=== PATIENT | male | born 1965 | race Caucasian/White ===

== ENCOUNTER 2018-09-20 08:00 | Inpatient (IN) | payer OTHER ==
[~2018-09-20 08:00] MED LIST: ceFAZolin 2 GM in Premix Bag 1 BAG IV SCH
[2018-09-20] MEDS ORDERED: Propofol 200 MG/20 ML SDV ONE ×2 (08:52→11:58)
[2018-09-20] MEDS ORDERED: fentaNYL 100 MCG/2 ML SDV ONE (08:53)
[2018-09-20] MEDS ORDERED: Midazolam 1 MG/ML 2 ML SDV ONE (08:53)
[2018-09-20] MEDS ORDERED: ceFAZolin 1 GM Vial ONE ×3 (08:58→11:53)
[2018-09-20] MEDS: Lactated Ringers 1,000 ML IV SCH ×2 (09:31→17:21)
--- NOTE | 2018-09-20 09:49 | PCM.PREANE ---
Preanesthetic Assessment - Anesthesia/Transfusion/Family Hx Anesthesia History: No Prior Anesthesia Family History of Anesthesia Reaction: No Transfusion History: No Prior Transfusion(s) - Review of Systems General: No Symptoms Pulmonary: No Symptoms Cardiovascular: No Symptoms Gastrointestinal: No Symptoms Neurological: No Symptoms Other: Reports: None - Physical Assessment NPO Status Date: 09/19/18 O2 Sat by Pulse Oximetry: 95 Respiratory Rate: 16 Vital Signs: Last Vital Signs Temp 97.2 F 09/20/18 08:45 Pulse 62 09/20/18 08:45 Resp 16 09/20/18 08:45 BP 137/92 H 09/20/18 08:45 Pulse Ox 95 09/20/18 08:45 Height: 5 ft 8 in Weight: 127.006 kg ASA Class: 2 Mental Status: Alert & Oriented x3 Dentition: Reports: Normal Dentition, Dentures Lungs: Clear to Auscultation, Normal Respiratory Effort Cardiovascular: Regular Rate, Regular Rhythm - Allergies Allergies/Adverse Reactions: Allergies Allergy/AdvReac Type Severity Reaction Status Date / Time No Known Allergies Allergy Verified 09/16/18 12:39 - Blood Blood Available: No - Anesthesia Plan Pre-Op Medication Ordered: None - Acknowledgements Anesthesia Type Planned: Spinal Pt an Appropriate Candidate for the Planned Anesthesia: Yes Alternatives and Risks of Anesthesia Discussed w Pt/Guardian: Yes Pt/Guardian Understands and Agrees with Anesthesia Plan: Yes Additional Comments: PMH: htn- on hctz and lisinopril, Morbid obesity with BMI=42 Plan: spinal with sedation PreAnesthesia Questionnaire HEENT History: Reports: None Cardiovascular History: Reports: Hypertension Respiratory History: Reports: None Gastrointestinal History: Reports: None Genitourinary History: Reports: None Musculoskeletal History: Reports: Arthritis, Fracture Other Musculoskeletal History: hx fx leg Neurological History: Reports: None Psychiatric History: Reports: None Endocrine/Metabolic History: Reports: Obesity/BMI 30+ Hematologic History: Reports: None Immunologic History: Reports: None Oncologic (Cancer) History: Reports: None Dermatologic History: Reports: Other (See Below) Other Dermatologic History: fungus to back, buttocks and leg - Past Surgical History Head Surgeries/Procedures: Reports: None HEENT Surgical History: Reports: None Cardiovascular Surgical History: Reports: None Respiratory Surgical History: Reports: None GI Surgical History: Reports: None Male Surgical History: Reports: None Endocrine Surgical History: Reports: None Neurological Surgical History: Reports: None Musculoskeletal Surgical History: Reports: None Oncologic Surgical History: Reports: None Dermatological Surgical History: Reports: None - SUBSTANCE USE Smoking Status *Q: Never Smoker Recreational Drug Use History: No - HOME MEDS Home Medications: Home Meds Cholecalciferol (Vitamin D3) [Vitamin D3] 2,000 units PO DAILY 09/16/18 [History ] Diclofenac Sodium [Voltaren] 75 mg PO BID 09/16/18 [History] Lisinopril 20 mg PO DAILY 09/16/18 [History] Terbinafine HCl 250 mg PO DAILY 09/16/18 [History] hydroCHLOROthiazide [Hydrochlorothiazide] 25 mg PO DAILY 09/16/18 [History] - CURRENT (IN HOUSE) MEDS Current Meds: Current Medications Lactated Ringer's (Ringers, Lactated) 1,000 mls @ 100 mls/hr IV ASDIRECTED [facility]GELA Last Admin: 09/20/18 09:31 Dose: 100 mls/hr Cefazolin Sodium/Dextrose 2 gm (/ Premix) 50 mls @ 100 mls/hr IV ONETIME [facility] Discontinued Medications Cefazolin Sodium (Ancef) Confirm Administered Dose 2 gm .ROUTE .STK-MED ONE Stop: 09/20/18 08:59 Cefazolin Sodium (Ancef) Confirm Administered Dose 1 gm .ROUTE .STK-MED ONE Stop: 09/20/18 09:00 Fentanyl (Sublimaze) Confirm Administered Dose 100 mcg .ROUTE .STK-MED ONE Stop: 09/20/18 08:54 Midazolam HCl (Versed 1 Mg/Ml) Confirm Administered Dose 2 mg .ROUTE .STK-MED ONE Stop: 09/20/18 08:54 Propofol (Diprivan 20 Ml) Confirm Administered Dose 600 mg .ROUTE .STK-MED ONE Stop: 09/20/18 08:53 Tranexamic Acid (Cyklokapron) 2,000 mg IV ONETIME ONE Stop: 09/20/18 07:01 Tranexamic Acid (Cyklokapron) Confirm Administered Dose 2,000 mg .ROUTE .STK- MED ONE Stop: 09/20/18 07:34
[2018-09-20] MEDS ORDERED: HYDROmorphone 2 MG/ML Syringe IVPUSH ONE (11:45)
[2018-09-20] MEDS ORDERED: Meperidine PF 25 MG/ML Syringe IVPUSH ONE (11:45)
[2018-09-20] MEDS ORDERED: fentaNYL 100 MCG/2 ML SDV IVPUSH PRN (11:45)
[2018-09-20] MEDS ORDERED: ePHEDrine 50 MG/ML SDV ONE (11:53)
[2018-09-20] MEDS ORDERED: Phenylephrine/Normal Saline 100 MCG/ML 10 ML Syringe ONE (11:53)
[2018-09-20] MEDS ORDERED: Glycopyrrolate 0.2 MG/ML SDV ONE (11:53)
[2018-09-20] MEDS ORDERED: Sodium Chloride 0.9% 40 ML ONE (12:24)
[2018-09-20] MEDS ORDERED: Bisacodyl 10 MG Supp RECTAL PRN (12:30)
[2018-09-20] MEDS ORDERED: Aluminum Hydroxide/Magnesium Hydroxide/Simethicone Susp 30 ML Cup PO PRN (12:30)
[2018-09-20] MEDS ORDERED: diphenhydrAMINE 25 MG Cap PO PRN (12:30)
[2018-09-20] MEDS ORDERED: Ketorolac 30 MG/ML SDV IVPUSH SCH (12:30)
[2018-09-20] MEDS ORDERED: Ondansetron 4 MG/2 ML SDV IV PRN (12:30)
--- NOTE | 2018-09-20 12:31 | PCM.OPNOTE ---
- General Post-Op/Procedure Note Date of Surgery/Procedure: 09/20/18 Operative Procedure(s): right anterior total hip arthroplasty Findings: severe OA Pre Op Diagnosis: right hip dysplasia with osteoarthritis Post-Op Diagnosis: same Anesthesia Technique: Moderate Sedation, Spinal Primary Surgeon: Philip Sood Mai Professor Of Voice: Piper Monaco Pathology: femoral head EBL in mLs: 500 Complications: none Condition: Good
--- NOTE | 2018-09-20 13:32 | PCM.POSTAN ---
POST ANESTHESIA ASSESSMENT - MENTAL STATUS Mental Status: Alert, Oriented - RESPIRATORY Respiratory Status: Respiratory Rate WNL, Airway Patent, O2 Saturation Stable - CARDIOVASCULAR CV Status: Pulse Rate WNL, Blood Pressure Stable - GASTROINTESTINAL GI Status: No Symptoms - POST OP HYDRATION Hydration Status: Adequate & Stable
[2018-09-20] MEDS: Acetaminophen/HYDROcodone 325-7.5 MG Tab PO PRN ×2 (14:20→18:27)
--- NOTE | 2018-09-20 15:47 | CR ---
EXAMINATION: Left hip HISTORY: Arthroplasty COMPARISON: 05/13/2018 TECHNIQUE: 2 images provided FINDINGS/IMPRESSION: Operative control films demonstrate left total hip trial hardware noted.
--- NOTE | 2018-09-20 15:57 | OR ---
SURGEON: Philip Henriquez MD DATE OF PROCEDURE: 09/20/2018 HULL SORTER: Piper Monaco PA-C. PREOPERATIVE DIAGNOSIS: Left hip dysplasia with osteoarthritis. POSTOPERATIVE DIAGNOSIS: Left hip dysplasia with osteoarthritis. OPERATION PERFORMED: Left anterior total hip arthroplasty. ANESTHESIA: Spinal with sedation. ESTIMATED BLOOD LOSS: 500 mL. SPECIMENS: Femoral head. IMPLANT: Terence Continuum trabecular metal shell with cluster holes, 56 outer diameter, one 6.5 x 30 mm bone screw, Vivacit-E neutral liner 36 mm inner diameter, Avenir Evans hip stem standard size 6; Biolox delta ceramic femoral head 36 mm diameter, zero neck length. INDICATIONS: The patient is a 53-year-old male with severe arthritis with dysplasia. He has failed conservative management, modification therapy, injections, chronic pain on a daily basis hindering activities. He wished to undergo replacement. He understands the risks, benefits, alternatives, complications of procedure including but not limited to infection, neurovascular injury, continued pain, DVT, PE, stroke, LA, , leg-length discrepancy, fracture, dislocation, and he wished to proceed. DESCRIPTION OF PROCEDURE: The patient was seen in the preoperative area. Operative extremity was marked with patient. He was transferred to the operating room. Spinal anesthesia was given. He was placed supine on the operating room table. Sedation was given. The legs were placed in the leg bars with a narrow perineal post. The left hip was prepped and draped in the usual sterile fashion using alcohol followed by ChloraPrep with Ioban covering. He received preop antibiotics Ancef 2 g and TXA. A formal time-out was taken, identifying the correct patient, procedure and extremity. An 8 cm incision starting lateral to the ASIS going obliquely to the femur was made. Dissection was carried down through the subcutaneous tissues. Hemostasis was obtained. The fascia overlying the TFL lateral to the lateral femoral cutaneous nerve was opened and the interval between TFL and sartorius deep between the abductors rectus was opened. The vastus lateralis fascia was opened and the anterior vessels were coagulated. A deep Sanjeev tractor was placed. The capsule was held and tagged with two sutures releasing the indirect head of the rectus and deep retractors were placed. The neck was cut from the saddle region 1 to 1-1/2 cm above the lesser trochanter. The head was removed. There was severe arthritis and intense amount of synovitis and synovectomy was performed during the case. The inferior capsule was released preserving the iliopsoas tendon. The labral remnants were removed. The pulvinar was removed. The head measured approximately 51 mm. It was sequentially reamed from 49 up to 55 mm was made going slightly superomedial to get good fit and fill. The bed was planed to make sure it was level and then after irrigating a continuum trabecular metal shell with cluster holes placed 10 degrees anteversion and 40 degrees of abduction and excellent press fit. Once straight superior bone screw was placed after drilling and neutral liner was impacted. The femoral lift was placed. The leg was externally rotated, abducted, and extended. The superior capsule and obturator internus and piriformis were released. The central canal finder was utilized and the hip was sequentially broached from a starter rasp up to a size 6 following the eastern [place]osh[place] version. It was trial reduced to standard neck length. Printed overlay technique showed equal leg length and offset compared to the opposite side. Therefore, the hip was dislocated. Trial components were removed. The final standard size 6 Avenir Chaparro stem was impacted following the [place] sh[place] version and the final head 36 mm diameter, zero neck length was impacted. It was relocated. There was no Shuck. There was stable range of motion. Two tag sutures were tied together. The fascia was closed with #1 Vicryl. The subcutaneous tissues with 2-0 Stratafix and skin was running 4-0 Monocryl. Dermabond tape and Aquacel dressing were placed. The patient was transferred to the recovery room in stable condition. Sponge and needle counts were correct at the end of the case. No complications. LUCIE / TONYA /[id number]
[2018-09-20] MEDS: ceFAZolin 2 GM in Premix Bag 1 BAG IV SCH (18:31)
[2018-09-20] MEDS: Docusate Sodium 100 MG Cap PO SCH ×2 (19:53→20:30)
[2018-09-20] MEDS: Ketorolac 30 MG/ML SDV IVPUSH SCH (23:00)
[2018-09-21] MEDS: Lactated Ringers 1,000 ML IV SCH (03:46)
[2018-09-21] MEDS: ceFAZolin 2 GM in Premix Bag 1 BAG IV SCH (03:47)
[2018-09-21] MEDS: Ketorolac 30 MG/ML SDV IVPUSH SCH (05:00)
[2018-09-21] MEDS ORDERED: Sodium Chloride 0.9% 10 ML Syringe FLUSH PRN (07:07)
[2018-09-21] MEDS ORDERED: Sodium Chloride 0.9% 2.5 ML Syringe FLUSH PRN (07:07)
--- NOTE | 2018-09-21 07:14 | PCM.SN ---
- Free Text/Narrative Note: S: doing well. Pain controlled. has ambulated. no CP/SOB. no other issues O: afebrile, vital signs stable dressing clean/dry/intact. no swelling in thigh or distally. sensation intact distally and active motor. 2+ DP A/P: POD #1 Left [place]ISE - full weight bearing, walker - ecotrin and SCDs for DVT prophylaxis - to home today, f/u in 2 weeks.
[2018-09-21] MEDS ORDERED: Aspirin 325 MG Tab PO SCH (09:00)
[2018-09-21] MEDS ORDERED: Lisinopril 10 MG Tab PO SCH (09:00)
[2018-09-21] MEDS ORDERED: Celecoxib 100 MG Cap PO SCH (09:00)
[2018-09-21] MEDS ORDERED: Hydrochlorothiazide 25 MG Tab PO SCH (09:00)
[2018-09-21] MEDS ORDERED: Terbinafine 250 MG Tab PO SCH (09:00)
[2018-09-21] MEDS: Docusate Sodium 100 MG Cap PO SCH (09:21)
--- NOTE | 2018-09-22 07:08 | PCM.DCSUM1 ---
Discharge Summary - Hospital Course Brief History: Patient was admitted for elective total hip arthroplasty. He underwent uneventful surgery and postoperatively was admitted to the floor where his pain was controlled and his diet was advanced. He participated in physical therapy with weightbearing as tolerated. Essentially discharged home on postoperative day #1 area did take aspirin for DVT prophylaxis he'll follow- up in 2 weeks. Diagnosis: Stroke: No - Discharge Data Discharge Date: 09/21/18 Discharge Disposition: Home, Self-Care 01 Condition: Good - Patient Summary/Data Operative Procedure(s) Performed: right anterior total hip arthroplasty Consults: Consultations 09/20/18 12:29 PT Evaluation and Treatment [CONS] Routine - Patient Instructions Diet: Usual Diet as Tolerated Activity: Apply Ice, Full Weight Bearing Driving, Other: may drive when not taking narcotics Showering/Bathing: May Shower Wound/Incision Care: Keep Operative Site/Wound Site Clean and Dry, Do NOT Change Dressing Notify Provider of: Fever, Swelling and Redness, Drainage - Discharge Plan *PRESCRIPTION DRUG MONITORING PROGRAM REVIEWED*: No *COPY OF PRESCRIPTION DRUG MONITORING REPORT IN PATIENT YOSELIN: No Home Medications: Home Meds Cholecalciferol (Vitamin D3) [Vitamin D3] 2,000 units PO DAILY 09/16/18 [History ] Diclofenac Sodium [Voltaren] 75 mg PO BID 09/16/18 [History] Lisinopril 20 mg PO DAILY 09/16/18 [History] Terbinafine HCl 250 mg PO DAILY 09/16/18 [History] hydroCHLOROthiazide [Hydrochlorothiazide] 25 mg PO DAILY 09/16/18 [History] Patient Handouts: Acetaminophen; Hydrocodone tablets or capsules, Total Hip Replacement, Care After, [id number], Docusate capsules, Aspirin capsules or tablets extended release Referrals: Piper Monaco PA [Physician Linen Folder] - 10/04/18 10:40 am - Discharge Summary/Plan Comment DC Time >30 min.: No - Patient Data Vitals - Most Recent: Last Vital Signs Temp 37.6 C 09/21/18 08:00 Pulse 82 09/21/18 08:00 Resp 18 09/21/18 08:00 BP 131/75 09/21/18 09:20 Pulse Ox 95 09/21/18 08:00 Weight - Most Recent: 127.006 kg Med Orders - Current: Current Medications Discontinued Medications Hydrocodone Bitart/Acetaminophen ([place] 325-7.5 Mg) 1 - 2 tab PO Q4H PRN PRN Reason: Pain Last Admin: 09/20/18 18:27 Dose: 2 tab Al Hydroxide/Mg Hydroxide (Mag-Al Plus) 30 ml PO Q4H PRN PRN Reason: indigestion Aspirin (Aspirin) 325 mg PO BID [facility] Last Admin: 09/21/18 09:21 Dose: 325 mg Bisacodyl (Dulcolax) 10 mg RECTAL DAILY PRN PRN Reason: Constipation Cefazolin Sodium (Ancef) Confirm Administered Dose 2 gm .ROUTE .STK-MED ONE Stop: 09/20/18 08:59 Cefazolin Sodium (Ancef) Confirm Administered Dose 1 gm .ROUTE .STK-MED ONE Stop: 09/20/18 09:00 Cefazolin Sodium (Ancef) Confirm Administered Dose 1 gm .ROUTE .STK-MED ONE Stop: 09/20/18 11:54 Celecoxib (Celebrex) 200 mg PO DAILY [facility] Last Admin: 09/21/18 09:21 Dose: 200 mg Diphenhydramine HCl (Benadryl) 25 - 50 mg PO Q6H PRN PRN Reason: Itching Docusate Sodium (Colace) 100 mg PO BID [facility] Last Admin: 09/21/18 09:21 Dose: 100 mg Ephedrine Sulfate (Ephedrine Sulfate) Confirm Administered Dose 50 mg .ROUTE .STK-MED ONE Stop: 09/20/18 11:54 Fentanyl (Sublimaze) Confirm Administered Dose 100 mcg .ROUTE .STK-MED ONE Stop: 09/20/18 08:54 Fentanyl (Sublimaze) 50 mcg IVPUSH Q5M PRN PRN Reason: Pain (severe 7-10) Stop: 09/21/18 11:48 Glycopyrrolate (Robinul) Confirm Administered Dose 0.2 mg .ROUTE .STK-MED ONE Stop: 09/20/18 11:54 Hydrochlorothiazide (Hydrochlorothiazide) 25 mg PO DAILY [facility] Last Admin: 09/21/18 09:21 Dose: 25 mg Hydromorphone HCl (Dilaudid) 2 mg IVPUSH ONETIME ONE Stop: 09/20/18 11:46 Last Admin: 09/20/18 17:03 Dose: Not Given Lactated Ringer's (Ringers, Lactated) 1,000 mls @ 100 mls/hr IV ASDIRECTED [facility] Last Admin: 09/21/18 03:46 Dose: 100 mls/hr Cefazolin Sodium/Dextrose 2 gm (/ Premix) 50 mls @ 100 mls/hr IV ONETIME [facility] Lidocaine HCl (Xylocaine-Mpf 1%) Confirm Administered Dose 5 mls @ as directed .ROUTE .STK-MED ONE Stop: 09/20/18 11:54 Sodium Chloride (Normal Saline) Confirm Administered Dose 40 mls @ as directed .ROUTE .STK-MED ONE Stop: 09/20/18 12:25 Cefazolin Sodium/Dextrose 2 gm (/ Premix) 50 mls @ 100 mls/hr IV Q8H [facility] Stop: 09/21/18 03:29 Last Admin: 09/21/18 03:47 Dose: 100 mls/hr Ketorolac Tromethamine (Toradol) 30 mg IVPUSH Q6H [facility] Stop: 09/21/18 05:00 Last Admin: 09/20/18 16:20 Dose: 30 mg Ketorolac Tromethamine (Toradol) 30 mg IVPUSH Q6H [facility] Stop: 09/21/18 05:00 Last Admin: 09/21/18 05:00 Dose: 30 mg Lisinopril (Prinivil) 20 mg PO DAILY [facility] Last Admin: 09/21/18 09:20 Dose: 20 mg Meperidine HCl (Demerol) 12.5 mg IVPUSH ONETIME ONE Stop: 09/20/18 11:46 Last Admin: 09/20/18 17:03 Dose: Not Given Midazolam HCl (Versed 1 Mg/Ml) Confirm Administered Dose 2 mg .ROUTE .STK-MED ONE Stop: 09/20/18 08:54 Morphine Sulfate (Morphine Sulfate) 1 - 3 mg IV Q3H PRN PRN Reason: Pain Last Admin: 09/20/18 19:50 Dose: 3 mg Ondansetron HCl (Zofran) 4 mg IV Q6HR PRN PRN Reason: NAUSEA/VOMITING Phenylephrine HCl (Phenylephrine In Ns 100 Mcg/Ml) Confirm Administered Dose 1 mg .ROUTE .STK-MED ONE Stop: 09/20/18 11:54 Propofol (Diprivan 20 Ml) Confirm Administered Dose 600 mg .ROUTE .STK-MED ONE Stop: 09/20/18 08:53 Propofol (Diprivan 20 Ml) Confirm Administered Dose 200 mg .ROUTE .STK-MED ONE Stop: 09/20/18 11:59 Sodium Chloride (Saline Flush) 10 ml FLUSH ASDIRECTED PRN PRN Reason: Keep Vein Open Sodium Chloride (Saline Flush) 2.5 ml FLUSH ASDIRECTED PRN PRN Reason: Keep Vein Open Terbinafine HCl (Lamisil) 250 mg PO DAILY [facility] Last Admin: 09/21/18 10:48 Dose: Not Given Tranexamic Acid (Cyklokapron) 2,000 mg IV ONETIME ONE Stop: 09/20/18 07:01 Last Admin: 09/20/18 17:03 Dose: Not Given Tranexamic Acid (Cyklokapron) Confirm Administered Dose 2,000 mg .ROUTE .STK- MED ONE Stop: 09/20/18 07:34
== END 2018-09-21 10:30 | disposition home or self-care (01) | DRG 470 ==
LOC: MW.MS 08:15
PROVIDERS: ADMIT Orthopaedic Surgery; ATTEND Orthopaedic Surgery
PROC: 0SRB04Z Replacement of Left Hip Joint with Ceramic on Polyethylene Synthetic Substitute, Open Approach (ICD-10-PCS; principal; 2018-09-20)
DX: M16.12 Unilateral primary osteoarthritis, left hip (principal); Z68.41 Body mass index [BMI] 40.0-44.9, adult; I10 Essential (primary) hypertension; E66.01 Morbid (severe) obesity due to excess calories; Q65.89 Other specified congenital deformities of hip; Z79.899 Other long term (current) drug therapy
CPT/HCPCS: 36415; 76000; 76000-26; 85014; 85018; 97116-GP; 97161-GP; 97530-GP; A9270-GY; C1713; C1776; J0690; J1885; J2001; J2250; J2270; J2370; J2704; J3010; J3490; J7120

== ENCOUNTER 2019-04-24 06:44 | Inpatient (IN) | payer OTHER ==
[~2019-04-24 06:44] MED LIST changes: +Lactated Ringers 1,000 ML IV SCH; -ceFAZolin 2 GM in Premix Bag 1 BAG IV SCH
[2019-04-24] MEDS ORDERED: ceFAZolin 2 GM in Premix Bag 1 BAG IV SCH (06:45)
[2019-04-24] MEDS ORDERED: Propofol 200 MG/20 ML SDV ONE (07:00)
[2019-04-24] MEDS ORDERED: Midazolam 1 MG/ML 2 ML SDV ONE (07:00)
[2019-04-24] MEDS ORDERED: fentaNYL 100 MCG/2 ML SDV ONE (07:00)
[2019-04-24] MEDS ORDERED: Ondansetron 4 MG/2 ML SDV ONE (07:09)
[2019-04-24] MEDS ORDERED: Bupivacaine 0.5% 10 ML SDV ONE (07:09)
[2019-04-24] MEDS ORDERED: Dexamethasone 4 MG/ML 5 ML MDV ONE (07:09)
--- NOTE | 2019-04-24 07:35 | PCM.PREANE ---
Preanesthetic Assessment - Anesthesia/Transfusion/Family Hx Anesthesia History: No Prior Anesthesia Family History of Anesthesia Reaction: No Transfusion History: No Prior Transfusion(s) - Review of Systems General: No Symptoms Pulmonary: No Symptoms Cardiovascular: No Symptoms Gastrointestinal: No Symptoms Neurological: No Symptoms Other: Reports: None - Physical Assessment NPO Status Date: 04/23/19 Height: 5 ft 8 in Weight: 128.82 kg ASA Class: 2 Mental Status: Alert & Oriented x3 Airway Class: Mallampati = 2 Dentition: Reports: Normal Dentition ROM/Head Extension: Full Lungs: Clear to Auscultation, Normal Respiratory Effort Cardiovascular: Regular Rate, Regular Rhythm - Allergies Allergies/Adverse Reactions: Allergies Allergy/AdvReac Type Severity Reaction Status Date / Time No Known Allergies Allergy Verified 04/18/19 15:23 - Blood Blood Available: No - Anesthesia Plan Pre-Op Medication Ordered: None - Acknowledgements Anesthesia Type Planned: General Anesthesia Pt an Appropriate Candidate for the Planned Anesthesia: Yes Alternatives and Risks of Anesthesia Discussed w Pt/Guardian: Yes Pt/Guardian Understands and Agrees with Anesthesia Plan: Yes Additional Comments: PMH: gerd, anxiety, prob BRONWYN PLAN: spinal with sedation, LMA or oral airway for patency PreAnesthesia Questionnaire HEENT History: Reports: None Cardiovascular History: Reports: Hypertension Respiratory History: Reports: None Gastrointestinal History: Reports: None Genitourinary History: Reports: None Musculoskeletal History: Reports: Arthritis, Fracture Other Musculoskeletal History: hx fx leg Neurological History: Reports: None Psychiatric History: Reports: None Endocrine/Metabolic History: Reports: Obesity/BMI 30+ Hematologic History: Reports: None Immunologic History: Reports: None Oncologic (Cancer) History: Reports: None Dermatologic History: Reports: Other (See Below) Other Dermatologic History: fungus to back, buttocks and leg - Past Surgical History Musculoskeletal Surgical History: Reports: None - SUBSTANCE USE Smoking Status *Q: Never Smoker Recreational Drug Use History: No - HOME MEDS Home Medications: Home Meds Cholecalciferol (Vitamin D3) [Vitamin D3] 2,000 units PO DAILY 09/16/18 [History ] Lisinopril 20 mg PO DAILY 09/16/18 [History] hydroCHLOROthiazide [Hydrochlorothiazide] 25 mg PO DAILY 09/16/18 [History] - CURRENT (IN HOUSE) MEDS Current Meds: Current Medications Lactated Ringer's (Ringers, Lactated) 1,000 mls @ 125 mls/hr IV ASDIRECTED [facility] Cefazolin Sodium/Dextrose 2 gm (/ Premix) 50 mls @ 100 mls/hr IV ONETIME [facility] Tranexamic Acid (Cyklokapron) 2,000 mg IV ONETIME ONE Stop: 04/24/19 08:01 Discontinued Medications Bupivacaine HCl (Sensorcaine-Mpf 0.5%) Confirm Administered Dose 10 ml .ROUTE .STK-MED ONE Stop: 04/24/19 07:10 Dexamethasone (Dexamethasone) Confirm Administered Dose 20 mg .ROUTE .STK-MED ONE Stop: 04/24/19 07:10 Fentanyl (Sublimaze) Confirm Administered Dose 100 mcg .ROUTE .STK-MED ONE Stop: 04/24/19 07:01 Lidocaine HCl (Xylocaine-Mpf 1%) Confirm Administered Dose 5 ml .ROUTE .STK-MED ONE Stop: 04/24/19 07:10 Midazolam HCl (Versed 1 Mg/Ml) Confirm Administered Dose 2 mg .ROUTE .STK-MED ONE Stop: 04/24/19 07:01 Ondansetron HCl (Zofran) Confirm Administered Dose 4 mg .ROUTE .STK-MED ONE Stop: 04/24/19 07:10 Propofol (Diprivan 20 Ml) Confirm Administered Dose 200 mg .ROUTE .STK-MED ONE Stop: 04/24/19 07:01 Tranexamic Acid (Cyklokapron) Confirm Administered Dose 2,000 mg .ROUTE .STK- MED ONE Stop: 04/24/19 07:10
[2019-04-24] MEDS ORDERED: ceFAZolin 1 GM Vial ONE (07:41)
[2019-04-24] MEDS ORDERED: Sodium Chloride 0.9% 20 ML ONE (07:41)
[2019-04-24] MEDS ORDERED: ePHEDrine 50 MG/ML SDV ONE (08:53)
[2019-04-24] MEDS ORDERED: Phenylephrine 1% 10 MG/ML SDV ONE (08:53)
[2019-04-24] MEDS ORDERED: Bupivacaine 0.5% 30 ML SDV ONE (09:27)
--- NOTE | 2019-04-24 09:48 | PCM.OPNOTE ---
- General Post-Op/Procedure Note Date of Surgery/Procedure: 04/24/19 Operative Procedure(s): right anterior total hip arthroplasty Findings: severe OA Pre Op Diagnosis: right hip osteoarthritis Post-Op Diagnosis: same Anesthesia Technique: General LMA, Spinal Primary Surgeon: Philip Sood Mai Vacuum Drier Operator: Eliza Mckay Reason Vacuum Drier Operator Was Necessary: retraction, reduction, closing, positioning Pathology: femoral head EBL in mLs: 300 Complications: none Condition: Good
[2019-04-24] MEDS ORDERED: Sodium Chloride 0.9% 2.5 ML Syringe FLUSH PRN (10:09)
[2019-04-24] MEDS ORDERED: Bisacodyl 10 MG Supp RECTAL PRN (10:09)
[2019-04-24] MEDS ORDERED: Sodium Chloride 0.9% 10 ML Syringe FLUSH PRN (10:09)
[2019-04-24] MEDS ORDERED: Ondansetron 4 MG/2 ML SDV IVPUSH PRN (10:09)
[2019-04-24] MEDS ORDERED: diphenhydrAMINE 25 MG Cap PO PRN (10:09)
[2019-04-24] MEDS ORDERED: Docusate Sodium 100 MG Cap PO PRN (10:09)
[2019-04-24] MEDS ORDERED: Aluminum Hydroxide/Magnesium Hydroxide/Simethicone Susp 30 ML Cup PO PRN (10:09)
[2019-04-24] MEDS ORDERED: Lactated Ringers 1,000 ML IV SCH (10:15)
[2019-04-24] MEDS ORDERED: Morphine 2 MG/ML Syringe IVPUSH PRN (10:18)
--- NOTE | 2019-04-24 10:41 | PCM.POSTAN ---
POST ANESTHESIA ASSESSMENT - MENTAL STATUS Mental Status: Alert, Oriented - VITAL SIGNS Vital Signs: Last Vital Signs Temp 97.9 F 04/24/19 10:00 Pulse 66 04/24/19 10:30 Resp 12 04/24/19 10:30 BP 114/81 04/24/19 10:30 Pulse Ox 98 04/24/19 10:30 - RESPIRATORY Respiratory Status: Respiratory Rate WNL, Airway Patent, O2 Saturation Stable - CARDIOVASCULAR CV Status: Pulse Rate WNL, Blood Pressure Stable - GASTROINTESTINAL GI Status: No Symptoms - POST OP HYDRATION Hydration Status: Adequate & Stable - OBSERVATIONS Free Text/Narrative:: I don asked the surgeon to add continuous SPO2 central monitoring to the patients inpt orders.
--- NOTE | 2019-04-24 11:14 | OR ---
SURGEON: Philip Henriquez MD DATE OF PROCEDURE: 04/24/2019 PRIMARY SURGEON: Philip Henriquez MD. SENIOR SECURITY ARCHITECT: TASHA Massey, medical assistant ob gyn was necessary for retraction, positioning, manipulation of the leg with relocation, closing. PREOPERATIVE DIAGNOSIS: Right hip osteoarthritis. POSTOPERATIVE DIAGNOSIS: Right hip osteoarthritis. OPERATION PERFORMED: Right anterior total hip arthroplasty. ANESTHESIA: Spinal and general with LMA. COMPLICATIONS: None. ESTIMATED BLOOD LOSS: 300 mL. SPECIMENS: None. IMPLANTS: Terence Continuum Trabecular Metal shell with cluster holes, 56 mm outer diameter; Vivacit-E neutral liner, 36 mm inner diameter, Avenir Evans stem, standard, size 6; BIOLOX delta ceramic femoral head, 36 mm diameter, 0 neck length. INDICATIONS: The patient is a 53-year-old male with the above diagnosis. He has failed conservative management, modification therapy, injections. Has chronic pain on daily basis. He has recently undergone placement on the other side. He understands the risks, benefits, alternatives, complications of the procedure including, but not limited to, infection, neurovascular injury, continued pain, nonresolution of symptoms, DVT, PE, stroke, IL, , leg-length discrepancy, fracture, or dislocation. He wished to proceed. DESCRIPTION OF PROCEDURE: The patient was seen in the preoperative area, operative extremity was marked. The patient was transferred to the operating room, spinal anesthetic was given. He was placed supine on the Harvard table. Once general anesthesia was induced and LMA was placed, he received preop antibiotics with Ancef and 2 g of TXA. Formal time-out was taken identifying correct patient, procedure, and extremity. Leg was were placed in leg bars with narrow perineal post. Right hip was prepped and draped in usual sterile fashion using alcohol followed by ChloraPrep with Ioban covering. An 8 cm incision starting lateral to the ASIS going obliquely down the femur was made. Dissection carried down through subcutaneous tissues. Hemostasis was obtained. The fascia overlying the TFL lateral to lateral femoral cutaneous nerve was opened in the interval between the TFL and sartorius, and deep between the abductors, his rectus was opened. The anterior vessels were coagulated. Vastus lateralis fascia was opened. A deep Sanjeev retractor was placed. Capsule was held and tagged with 2 sutures and deep retractors were placed. There was severe synovitis which was debrided. The neck was cut from saddle region to 1.5 cm above the lesser trochanter based on preoperative templating with the other side and the head was removed. There was severe arthritis. The labral remnants were removed. The inferior capsule was released preserving the iliopsoas tendon. The head measured approximately 51 to 52 mm and was sequentially reamed from 52 up to 55 mm. Going slightly superior and lateral, gave good fit and fill. The bed was planed to make sure it was level and then a Continuum Trabecular Metal shell with cluster holes was placed in 10 degrees of anteversion and 40 degrees of abduction, this had excellent press fit. No screw was needed and a neutral liner was impacted after cleaning out. The femoral lift was placed. Leg was externally rotated, abducted, and extended. Superior capsule, obturator internus, and piriformis were released. Central canal finder was utilized and hip was sequentially broached up to size 6 following the [place] version. It was trial reduced with a 0 neck. Printed overlay technique with fluoroscopy showed equal leg lengths and offset compared to the opposite side and was identical size as in his opposite side. Therefore, the final Avenir Evans size 6 was placed after dislocating, placing the leg in same position, and after cleaning the Lenz taper, the 0 neck and 36 mm head were impacted. Hip was relocated. There was no shuck with stable range of motion. Two tag sutures were tied together. The hip was anesthetized with Marcaine. Fascia closed with #1 Vicryl, subcutaneous tissues with 2-0 Stratafix, skin with running 4-0 Monocryl. Prineo, Dermabond, and Aquacel dressing were placed. The patient was extubated in the operating room and transferred to the recovery room in stable condition. Sponge and needle counts were correct at the end of the case. There were no complications. Blood loss of 300 mL. LUCIE CASTANEDA /[id number]
[2019-04-24] MEDS: Lisinopril 10 MG Tab PO SCH (13:25)
[2019-04-24] MEDS: Acetaminophen/HYDROcodone 325-7.5 MG Tab PO PRN ×2 (14:41→19:11)
[2019-04-24] MEDS: Ketorolac 30 MG/ML SDV IVPUSH SCH ×2 (15:18→21:03)
[2019-04-24] MEDS: ceFAZolin 2 GM in Premix Bag 1 BAG IV SCH ×2 (15:20→23:37)
--- NOTE | 2019-04-24 16:48 | CR ---
Hip: Fluoroscopic spot view was obtained of the hip. Side of exam not marked on the study. Study shows placement of a hip prosthesis. Fluoroscopy time not given with the exam. Impression: Procedural study. Diagnostic code #2 MTDD
[2019-04-24] MEDS: Aspirin 325 MG Tab PO SCH (21:03)
[2019-04-25] MEDS: Acetaminophen/HYDROcodone 325-7.5 MG Tab PO PRN (00:28)
[2019-04-25] MEDS: Ketorolac 30 MG/ML SDV IVPUSH SCH (03:45)
--- NOTE | 2019-04-25 06:45 | PCM.SN ---
- Free Text/Narrative Note: S: doing well. ambulating in hallway. pain well controlled. tolerating PO. no CP /SOB O: afebrile, vital signs stable right hip: dressing clean/dry/intact with no drainage. no surrounding erythema. some swelling in thigh, but none distally. neurovascular intact distally. A/P: POD #1 right PARADISE - full weight bearing with walker - leave dressing on - no excessive external rotation with extension - SCDs and ecotrin for DVT propylaxis. - to home today, f/u 2 weeks.
--- NOTE | 2019-04-25 06:47 | PCM.DCSUM1 ---
Discharge Summary - Hospital Course Brief History: admitted for elective hip arthroplasty Diagnosis: Stroke: No - Discharge Data Discharge Date: 04/25/19 Discharge Disposition: Home, Self-Care 01 Condition: Good - Referral to Home Health Primary Care Physician: PCP None - Patient Summary/Data Operative Procedure(s) Performed: right anterior total hip arthroplasty Consults: Consultations 04/24/19 10:09 PT Evaluation and Treatment [CONS] Routine Hospital Course: underwent right PARADISE. postoperatively was admitted to floor, diet was advance and he was allowed full weight bearing. He did well and was discharged home. - Patient Instructions Diet: Usual Diet as Tolerated Activity: Apply Ice, Full Weight Bearing Driving: Do Not Drive Showering/Bathing: May Shower Wound/Incision Care: Keep Operative Site/Wound Site Clean and Dry, Do NOT Change Dressing Notify Provider of: Fever, Swelling and Redness, Drainage - Discharge Plan *PRESCRIPTION DRUG MONITORING PROGRAM REVIEWED*: No *COPY OF PRESCRIPTION DRUG MONITORING REPORT IN PATIENT YOSELIN: No Home Medications: Home Meds Cholecalciferol (Vitamin D3) [Vitamin D3] 2,000 units PO DAILY 09/16/18 [History ] Lisinopril 20 mg PO DAILY 09/16/18 [History] hydroCHLOROthiazide [Hydrochlorothiazide] 25 mg PO DAILY 09/16/18 [History] Patient Handouts: Acetaminophen; Hydrocodone tablets or capsules, Total Hip Replacement, Care After, [id number], Aspirin capsules or tablets extended release Referrals: Eliza Mckay SURGERY TECHNICIAN [Nurse Practitioner] - 05/04/19 10:00 am - Discharge Summary/Plan Comment DC Time >30 min.: No - Patient Data Vitals - Most Recent: Last Vital Signs Temp 35.6 C 04/25/19 04:00 Pulse 61 04/25/19 04:00 Resp 16 04/25/19 04:00 BP 111/52 L 04/25/19 05:00 Pulse Ox 93 L 04/25/19 04:00 Weight - Most Recent: 128.82 kg I&O - Last 24 hours: Intake & Output 04/24/19 04/24/19 04/25/19 14:59 22:59 06:59 Intake Total 0998 643 5649 Output Total 250 900 Balance 1650 528 750 Med Orders - Current: Current Medications Hydrocodone Bitart/Acetaminophen ([place] 325-7.5 Mg) 1 - 2 tab PO Q4H PRN PRN Reason: Pain Last Admin: 04/25/19 00:28 Dose: 1 tab Al Hydroxide/Mg Hydroxide (Mag-Al Plus) 30 ml PO Q4H PRN PRN Reason: Indigestion Aspirin (Aspirin) 325 mg PO BID [facility] Last Admin: 04/24/19 21:03 Dose: 325 mg Bisacodyl (Dulcolax) 10 mg RECTAL DAILY PRN PRN Reason: Constipation Diphenhydramine HCl (Benadryl) 25 - 50 mg PO Q6H PRN PRN Reason: Itching Docusate Sodium (Colace) 100 mg PO BID PRN PRN Reason: Constipation Famotidine (Pepcid) 40 mg PO DAILY [facility] Hydrochlorothiazide (Hydrochlorothiazide) 25 mg PO DAILY [facility] Lactated Ringer's (Ringers, Lactated) 1,000 mls @ 125 mls/hr IV ASDIRECTED [facility] Last Admin: 04/24/19 07:10 Dose: 125 mls/hr Cefazolin Sodium/Dextrose 2 gm (/ Premix) 50 mls @ 100 mls/hr IV ONETIME [facility] Lactated Ringer's (Ringers, Lactated) 1,000 mls @ 100 mls/hr IV ASDIRECTED [facility] Last Admin: 04/24/19 11:01 Dose: 100 mls/hr Lisinopril (Prinivil) 20 mg PO DAILY [facility] Last Admin: 04/24/19 13:25 Dose: 20 mg Morphine Sulfate (Morphine) 1 - 3 mg IVPUSH Q3H PRN PRN Reason: Pain Last Admin: 04/24/19 15:00 Dose: 2 mg Ondansetron HCl (Zofran) 4 mg IVPUSH Q6H PRN PRN Reason: Nausea/Vomiting Polyethylene Glycol (Miralax) 17 gm PO DAILY [facility] Sodium Chloride (Saline Flush) 10 ml FLUSH ASDIRECTED PRN PRN Reason: Keep Vein Open Sodium Chloride (Saline Flush) 2.5 ml FLUSH ASDIRECTED PRN PRN Reason: Keep Vein Open Discontinued Medications Aspirin (Aspirin) 325 mg PO BID [facility] Bupivacaine HCl (Sensorcaine-Mpf 0.5%) Confirm Administered Dose 10 ml .ROUTE .[facility] ONE Stop: 04/24/19 07:10 Bupivacaine HCl (Marcaine 0.5%) Confirm Administered Dose 30 ml .ROUTE .[facility]-MED ONE Stop: 04/24/19 09:28 Cefazolin Sodium (Ancef) Confirm Administered Dose 3 gm .ROUTE .[facility]-MED ONE Stop: 04/24/19 07:42 Dexamethasone (Dexamethasone) Confirm Administered Dose 20 mg .ROUTE .[facility]-MED ONE Stop: 04/24/19 07:10 Ephedrine Sulfate (Ephedrine Sulfate) Confirm Administered Dose 50 mg .ROUTE .[facility]-MED ONE Stop: 04/24/19 08:54 Fentanyl (Sublimaze) Confirm Administered Dose 100 mcg .ROUTE .[facility] ONE Stop: 04/24/19 07:01 Sodium Chloride (Normal Saline) Confirm Administered Dose 20 mls @ as directed .ROUTE .[facility] ONE Stop: 04/24/19 07:42 Cefazolin Sodium/Dextrose 3 gm (/ Premix) 75 mls @ 100 mls/hr IV Q8H [facility] Stop: 04/25/19 00:44 Cefazolin Sodium/Dextrose 2 gm (/ Premix) 50 mls @ 100 mls/hr IV Q8H [facility] Stop: 04/25/19 00:29 Last Admin: 04/24/19 23:37 Dose: 100 mls/hr Ketorolac Tromethamine (Toradol) 30 mg IVPUSH Q6H [facility] Stop: 04/25/19 05:00 Last Admin: 04/25/19 03:45 Dose: 30 mg Lidocaine HCl (Xylocaine-Mpf 1%) Confirm Administered Dose 5 ml .ROUTE .[facility]-MED ONE Stop: 04/24/19 07:10 Midazolam HCl (Versed 1 Mg/Ml) Confirm Administered Dose 2 mg .ROUTE .[facility]-MED ONE Stop: 04/24/19 07:01 Ondansetron HCl (Zofran) Confirm Administered Dose 4 mg .ROUTE .[facility]-MED ONE Stop: 04/24/19 07:10 Phenylephrine HCl (Doug-Synephrine) Confirm Administered Dose 10 mg .ROUTE .[facility]- MED ONE Stop: 04/24/19 08:54 Propofol (Diprivan 20 Ml) Confirm Administered Dose 200 mg .ROUTE .[facility]-MED ONE Stop: 04/24/19 07:01 Tranexamic Acid (Cyklokapron) 2,000 mg IV ONETIME ONE Stop: 04/24/19 08:01 Last Admin: 04/24/19 11:01 Dose: Not Given Tranexamic Acid (Cyklokapron) Confirm Administered Dose 2,000 mg .ROUTE .[facility] ONE Stop: 04/24/19 07:10
[2019-04-25] MEDS: Aspirin 325 MG Tab PO SCH (08:59)
[2019-04-25] MEDS: Lisinopril 10 MG Tab PO SCH (08:59)
[2019-04-25] MEDS ORDERED: Polyethylene Glycol 3350 Powder 17 GM Packet PO SCH (09:00)
[2019-04-25] MEDS ORDERED: Aspirin 325 MG Tab PO SCH (09:00)
[2019-04-25] MEDS ORDERED: Hydrochlorothiazide 25 MG Tab PO SCH (09:00)
[2019-04-25] MEDS ORDERED: Famotidine 20 MG Tab PO SCH (09:00)
== END 2019-04-25 11:50 | disposition home or self-care (01) | DRG 470 ==
LOC: MW.MS 06:44
PROVIDERS: ADMIT Orthopaedic Surgery; ATTEND Orthopaedic Surgery
PROC: 0SR901A Replacement of Right Hip Joint with Metal Synthetic Substitute, Uncemented, Open Approach (ICD-10-PCS; principal; 2019-04-24)
DX: M16.11 Unilateral primary osteoarthritis, right hip (principal)
CPT/HCPCS: 01214; 88304; 88311; 97110-GP; 97116-GP; 97161-GP; A9270-GY; C1776; J0690; J1100; J1885; J2001; J2250; J2270; J2370; J2405; J2704; J3010; J3490; J7120